=== PATIENT | female | born 1975 | race Caucasian/White ===

== ENCOUNTER → 2020-09-01 | Outpatient (CLI) | payer OTHER ==
[2020-09-01 09:13] VITALS: BP 143/82; PULSE 80; RESP 18; TEMP 98.3
--- NOTE | 2020-09-01 09:52 | P.GSHP ---
History of Present Illness H&P Date: 09/01/20 Chief Complaint: Lump right breast Maliha is a 45-year-old white female seen in consultation for Maira Eden regarding a mass in her right breast. She has in 2014 and a needle core biopsy of the left breast was done which revealed a fibroadenoma. Additionally a needle biopsy of the right breast which is believed to be in the area of the palpable abnormality was also consistent with a fibroadenoma. Although this appears to be relatively stable on radiographic evaluation since 2014, the patient. It is increased in size and it is tender to palpation. Her last bilateral mammogram was on 02/25/2020 lesions of concern were identified in the left breast. She subsequently has had a repeat [place] [id number]. Again a 12 mm upper-outer right anterior density is noted associated with the biopsy clip it appears to be stable and is most likely consistent with a fibroadenoma however it is clinically tender for the patient. She is not complaining of any lesions of concern in the left breast. The pain in the right breast started about 2 months ago. She does not complain of any pain masses or nodules in the left breast. She has not had any trauma or infection of the breast. The epicenter of the pain appears to be at the 11 o'clock position near the area of increased nodularity which is believed to be that which was biopsied consistent with a fibroadenoma. Patient is a cervical cancer survivor. smoke: 1 PPD Caffeine: Negative theobromine: weekly Family History: mother: cervical, and stomach cancer patient: cervical cancer 2 maternal aunts: cervical cancer maternal aunt: brain cancer Hormonal History: menarche: 11 , breast fed: yes, age at first : 17 menopause: now, she had a hysterectomy about 29 she still has her ovaries BCP: 2 years hormones: estrogen after hysterectomy stopped less than one year Surgical history: 1. Hysterectomy at age of about 29, cervical cancer 2. D&C 3. gallbladder 4. two 5. 2 1/2 ribs removed left side, at the age of 29; ? cancer Medical History: CVA stress induced Hormonal History: smoke: 1/PPD alcohol: none drugs: none - Constitutional Constitutional: Reports sweats, Denies chills, Denies fever - EENT Eyes: denies blurred vision, denies pain Ears: deny: decreased hearing, tinnitus Ears, nose, mouth and throat: Denies headache, Denies sore throat - Breasts Breasts: bilateral: as per HPI - Cardiovascular Cardiovascular: Denies chest pain, Denies shortness of breath - Respiratory Comment: ribs removed, arthritis - Gastrointestinal Gastrointestinal: Denies abdominal pain, Denies diarrhea, Denies nausea, Denies vomiting - Genitourinary (Female) Comment: UTI on an antibiotic at this time Genitourinary: Denies dysuria, Denies hematuria - Menstruation Menstruation: Reports post hysterectomy - Musculoskeletal Comment: arthritis - Integumentary Integumentary: Denies pruritus, Denies rash - Neurological Comment: no feeling in the left side Neurological: Denies numbness, Denies weakness - Psychiatric Psychiatric: Reports anxiety, Denies depression - Endocrine Endocrine: Reports weight change, Denies fatigue - Hematologic/Lymphatic Comment: none - Allergic/Immunologic Allergic/Immunologic: Reports as per HPI Past Medical History History of Any Multi-Drug Resistant Organisms: None Reported Smoking Status: Current every day smoker Medications and Allergies Home Medications Medication Instructions Recorded Confirmed Type Ascorbic Acid [Vitamin C] 500 mg PO DAILY 09/01/20 09/01/20 History Cephalexin [Keflex] 500 mg PO Q12HR 09/01/20 09/01/20 History Cholecalciferol (Vitamin D3) 125 mcg PO WEEKLY 09/01/20 09/01/20 History [Vitamin D3 (5000 units)] Cyclobenzaprine [Flexeril] 10 mg PO HS 09/01/20 09/01/20 History Mv,Calcium,Min/Iron/Folic/Vitk 1 each PO DAILY 09/01/20 09/01/20 History [One-A-Day Women's Complete Tab] Naproxen 500 mg PO BID 09/01/20 09/01/20 History Allergies Allergy/AdvReac Type Severity Reaction Status Date / Time bee venom protein (honey bee) Allergy Anaphylaxis Unverified 09/01/20 09:07 codeine Allergy Rash/Hives Unverified 09/01/20 09:07 iodine Allergy Swelling Unverified 09/01/20 09:07 orange Allergy Anaphylaxis Unverified 09/01/20 09:07 Penicillins Allergy Rash/Hives Unverified 09/01/20 09:07 Sulfa (Sulfonamide Allergy Rash/Hives Unverified 09/01/20 09:07 Antibiotics) Surgical - Exam Vital Signs Temp Pulse Resp BP Pulse Ox 98.3 F 80 18 143/82 99 09/01/20 09:10 09/01/20 09:10 09/01/20 09:10 09/01/20 09:10 09/01/20 09:10 BMI 32.3 - General well developed, well nourished, no distress - Eyes normal ocular movement - ENT no hearing loss - Neck no masses, trachea midline - Respiratory normal respiratory effort, clear to auscultation - Cardiovascular Rhythm: regular Heart Sounds: normal: S1, S2 - Abdomen Abdomen: soft, non tender, no guarding, no rigid, no rebound - Integumentary normal turgor This is decreased sensation extending from the left side down toward the left thigh and lower leg, she has no loss of motor activity on this side - Neurologic no disoriented, no combative - Musculoskeletal normal gait - Psychiatric oriented to time, oriented to person, oriented to place, speech is normal, memory intact breast exam: BRA: 38C inspection: grade 3 ptosis bilateral palpation: Right breast: Multi-positional exam fibrocystic changes, area of increased nodularity approximately the 11 o'clock position which is tender to palpation Right axilla: No adenopathy of concern Left breast: Multi-positional exam fibrocystic changes no dominant masses or nodules of concern Left axilla: No adenopathy of concern Results mammogram and ultrasound of the right breast reviewed from 07-28-20, bilateral mammogram on 02-25-20 Assessment and Plan Assessment: Impression: 1. ? recent stress induced CVA 2. pain right breast 3. nodule right breast 4. prior fibroadenoma right breast Plan: 1. FNA right breast palpable mass 2. Consider removal of palpable mass depending on pathology 3. Clearance from Sharmaine Eden 4. rule out a CVA CC: Sharmaine Eden encounter 45 minutes, > 50% of time in planning and counselling
--- NOTE | 2020-09-01 09:54 | P.PCN ---
Date of Procedure: 09/01/20 Preoperative Diagnosis: Mass right breast approximately 1 cm in size at 11 o'clock position Postoperative Diagnosis: Same Procedure(s) Performed: FNA area of concern Surgeon: Sophia Chavarria Pathology: other Condition: stable Disposition: same day Indications for Procedure: palpable mass right breast Operative Findings: Dense breast tissue Description of Procedure: Concern in the right breast was prepped using alcohol. A 22-gauge needle on a 12 mL syringe was inserted into the area of concern under negative pressure. Multiple passes were obtained obtaining tissue for evaluation. Tissue was then removed and sent to pathology. Patient tolerated procedure in stable condition dressing was applied. Patient will follow-up in the near future for results.
== END | disposition home or self-care (01) ==
LOC: WWCWWP 08:57
PROVIDERS: ATTEND Surgery
DX: N64.9 Disorder of breast, unspecified (principal)
CPT/HCPCS: 88173

== ENCOUNTER 2021-05-10 21:06 | Observation (INO) | payer OTHER ==
--- NOTE | 2021-05-10 21:43 | ED ---
Neuro HPI - General Chief Complaint: Neuro Symptoms/Deficit Stated Complaint: Leg Numbness Time Seen by Provider: 05/10/21 21:20 Source: patient, EMS, RN notes reviewed, old records reviewed Mode of arrival: EMS Limitations: no limitations - History of Present Illness Is the patient presenting with stroke symptoms?: No Initial Comments: This is a 45-year-old female no real significant medical history is safe for evaluation regards to neurological deficits leg pain left leg numbness and tingling. Patient has no other complaints here in the ER she is accepted in transfer evaluated although during transfer process symptoms Location: left leg Place: home Severity: mild Quality: weak, numb, tingling Improves With: time Worsens With: none On Anticoagulants: No Context: gradual onset Associated Symptoms: denies other symptoms Treatments Prior to Arrival: none - Related Data Home Medications: Home Medications Medication Instructions Recorded Confirmed Ascorbic Acid [Vitamin C] 500 mg PO DAILY 09/01/20 05/10/21 Cyclobenzaprine [Flexeril] 10 mg PO TID PRN 09/01/20 05/10/21 Naproxen 500 mg PO BID 09/01/20 05/10/21 Aspirin EC [Ecotrin Low Dose] 81 mg PO DAILY 05/10/21 05/10/21 EPINEPHrine (Auto Inject) [Epipen] 0.3 mg IM ONCE PRN 05/10/21 05/10/21 Ergocalciferol [Vitamin D2 (1250 1,250 mcg PO WE 05/10/21 05/10/21 Mcg = 60890 Iu)] Nicotine 21Mg/24Hr Patch [Habitrol] 1 patch TRANSDERM DAILY 05/10/21 05/10/21 Potassium Chloride ER [K-Dur 10] 10 meq PO DAILY 05/10/21 05/10/21 Pregabalin [Lyrica] 100 mg PO TID 05/10/21 05/10/21 Spironolactone [Aldactone] 25 mg PO DAILY 05/10/21 05/10/21 Topiramate [Topamax] 150 mg PO BID 05/10/21 05/10/21 hydroCHLOROthiazide [Hydrodiuril] 25 mg PO DAILY 05/10/21 05/10/21 lisinopriL [Zestril] 2.5 mg PO BID 05/10/21 05/10/21 Previous Rx's Medication Instructions Recorded Aspirin 81 mg PO DAILY 21 Days tab 05/11/21 Atorvastatin [Lipitor] 40 mg PO HS #30 tab 05/11/21 Clopidogrel [Plavix] 75 mg PO DAILY #30 tab 05/11/21 Allergies/Adverse Reactions: Allergies Allergy/AdvReac Type Severity Reaction Status Date / Time bee venom protein (honey bee) Allergy Anaphylaxis Verified 05/10/21 22:31 codeine Allergy Rash/Hives Verified 05/10/21 22:31 iodine Allergy Swelling Verified 05/10/21 22:31 orange Allergy Anaphylaxis Verified 05/10/21 22:31 Penicillins Allergy Rash/Hives Verified 05/10/21 22:31 Sulfa (Sulfonamide Allergy Rash/Hives Verified 05/10/21 22:31 Antibiotics) Review of Systems ROS Statement: Those systems with pertinent positive or pertinent negative responses have been documented in the HPI. ROS Other: All systems not noted in ROS Statement are negative. General Exam Limitations: no limitations Stroke MDM - NIH Stroke Scale 1a. Level of Consciousness: (0) alert 1b. LOC Questions: (0) answers correctly 1c. LOC Commands: (0) performs tasks correctly 2. Best Gaze: (0) normal 3. Visual: (0) no visual loss 4. Facial Palsy: (0) normal symmetrical movement 5a. Motor Arm Left: (0) no drift 5b. Motor Arm Right: (0) no drift 6a. Motor Leg Left: (0) no drift 6b. Motor Leg Right: (0) no drift 7. Limb Ataxia: (0) absent 8. Sensory: (0) normal 9. Best Language: (0) no aphasia 10. Dysarthria: (0) normal 11. Extinction/Inattention: (0) no abnormality - Medical Decision Making 45 female to the emergency department for evaluation of neurological complaints and leg numbness. All symptoms resolved here in the ER. Patient sent to us for neurological evaluation Past Medical History Past Medical History: CVA/TIA Additional Past Medical History / Comment(s): cervical/stomach CA History of Any Multi-Drug Resistant Organisms: None Reported Past Surgical History: Hysterectomy Past Psychological History: No Psychological Hx Reported Smoking Status: Current every day smoker Past Alcohol Use History: None Reported Past Drug Use History: Marijuana Course Vital Signs 05/10/21 05/11/21 05/11/21 21:09 01:01 02:53 Temperature 98 F Pulse Rate 78 Respiratory 18 18 18 Rate Blood Pressure 107/78 O2 Sat by Pulse 98 Oximetry 05/11/21 05/11/21 03:55 04:11 Temperature 98.3 F Pulse Rate 88 Respiratory 18 Rate Blood Pressure 96/61 115/59 O2 Sat by Pulse 94 L Oximetry - Reevaluation(s) Reevaluation #1: Medical record is reviewed Patient symptoms are improved here in the emergency department Patient informed of results and questions answered Patient is in no acute distress Transferring paperwork is reviewed and did speak with transferring physician Reevaluation #2: Patient aware of need for admission and monitoring Disposition Clinical Impression: Transient cerebral ischemia Disposition: ADMITTED IP TO THIS HOSP Condition: Fair Is patient prescribed a controlled substance at d/c from ED?: No
[2021-05-10] MEDS ORDERED: SODIUM CHLORIDE 0.9% 1,000 ML IV SCH (21:45)
--- NOTE | 2021-05-10 22:37 | US ---
EXAMINATION TYPE: US carotid duplex BILAT DATE OF EXAM: 05/10/2021 COMPARISON: NONE CLINICAL HISTORY: Stenosis. EXAM MEASUREMENTS: RIGHT: Peak Systolic Velocity (PSV) cm/sec ----- Right CCA: 79.8 ----- Right ICA: 71.1 ----- Right ECA: 120.6 ICA/CCA ratio: 0.9 RIGHT: End Diastole cm/sec ----- Right CCA: 24.6 ----- Right ICA: 30.4 ----- Right ECA: 26.0 LEFT: Peak Systolic Velocity (PSV) cm/sec ----- Left CCA: 58.0 ----- Left ICA: 69.3 ----- Left ECA: 124.2 ICA/CCA ratio: 1.2 LEFT: End Diastole cm/sec ----- Left CCA: 25.7 ----- Left ICA: 32.1 ----- Left ECA: 12.8 VERTEBRALS (direction of flow): Right Vertebral: Antegrade Left Vertebral: Antegrade Rhythm: Normal No significant velocity elevations. Mild intimal thickening bilaterally. IMPRESSION: There is antegrade flow in the vertebral arteries. The images and measurements suggest less than 25% stenosis in both internal carotid arteries. NASCET criteria was used in interpretation of this exam? Criteria for Assigning % of Stenosis / Diameter reduction (Estimation based on the indirect measurements of the internal carotid artery velocities (ICA PSV). 1. Normal (no stenosis)=ICA PSV < 125 cm/s: ratio < 2.0: ICA EDV<40 cm/s. 2. Less than 50% stenosis=ICA PSV < 125 cm/s: ratio < 2.0: ICA EDV<40 cm/s. 3. 50 to 69% stenosis=ICA PSV of 125 to 230 cm/s: ration 2.0 ? 4.0: ICA EDV 40-100 cm/s. 4. Greater than 70% stenosis to near occlusion= ICA PSV > 230 cm/s: ratio > 4.0: ICA EDV > 100 cm/s. 5. Near occlusion= ICA PSV velocities may be low or undetectable: variable ratio and ICA EDV. 6. Total occlusion=unable to detect flow.
[2021-05-11] MEDS ORDERED: ASPIRIN 325 MG TAB PO SCH (09:00)
[2021-05-11] MEDS ORDERED: TOPIRAMATE 25 MG TAB PO SCH (09:15)
[2021-05-11] MEDS ORDERED: CLOPIDOGREL 75 MG TAB PO SCH (09:15)
[2021-05-11] MEDS ORDERED: TOPIRAMATE 100 MG TAB PO SCH (09:15)
--- NOTE | 2021-05-11 09:43 | P.CNNES ---
History of Present Illness Consult date: 05/11/21 Requesting physician: Mingo Rogers Reason for Consult: tia History of Present Illness: This is 45-year-old woman history of stroke with residual left-sided weakness, migraine, seizure, hypertension, fibromyalgia, chronic pain syndrome, cervix neoplasma s/p partial hysterectomy and has history of nicotine use who was transferred from outside facility ([facility]) to our emergency department on 05/10/2021 for escalation of stroke work-up. She stated that on the 05/10/2021 around the 12 PM in the afternoon she was watching TV and all of a sudden she noticed that she was having bilateral lower extremity weakness with numbness as well as slurred speech. She said that the she also noticed that she has significant pain throughout her body. She denies of the difficulty swallowing. She said that she has a headache every day and it over the frontal occipital region and it's over the the left side predominantly. She said the headache fluctuates on off and it's been about the same. Upon asking her the description of the headache she said it all the above as an sharp pain, throbbing, tension. She denies of any photophobia,. Phonophobia or nausea or vomiting. She denies any loss of consciousness yesterday or urinary or bowel incontinence or tongue bite. He said the she is on aspirin 81, Lipitor 10 mg daily and she is compliant with her medication that. She stated that the L4 her seizure as well as migraine she is on Topamax and she's supposed to be on 150 mg 1 tablet twice a day that was just changed recently but she has not got a chance to get the prescription since it was changed recently and she is only on 100 mg 1 tablet twice a day. She follows up with her neurologist (Dr. Gomez). She said that she has an EEG, not by this Friday. She had EEGs in the past and she stated that she was told she did have a seizure on the EEG. Currently she is feeling back to baseline. As a result the she seek medical help and the patient the presented to [facility]. Some of the patient home medication consist of aspirin 81 mg, Lipitor 10 mg, Flexeril 10 mg 1 tablet 3 times a day when necessary, Lyrica 100 mg a tablet 3 times a day, Aldactone 25 mg daily, Topamax 150 mg a tablet at twice a day, hydrochlorothiazide, Lipitor pill, vitamin C vitamin D2. Outside facility work-up/management: CT of the head there and was reported as no acute intracranial finding. And there are note and they stated that the patient had NIH of a 6 but no TPA since the they felt the patient was probably a TIA or stroke per their note. She had CT lumbr spine and reported as no acute traumatic lesion of lumbar spine. Multilevel degenerative disc disease changes. In body of report it is seen in L3-L4, L4-L5 and L5-S1. Her wbc on presentation at [facility] is 9.7 (normal). Glucose 116, Na 136, Ca 10.5, Cr 0.7, AST/ALT 25/21. Some of the workup in the hospital consisted of: Initial vitals: blood pressure is 107/78, heart rates 78, respiratory of 18, temperature of 98 Fahrenheit oral and pulse ox 90% Carotid duplex is reported as there is antegrade flow in the vertebral arteries. Images and measurements suggest less than 25% stenosis in both internal carotid arteries. Review of Systems Review of system: The 12 point system was reviewed and apparent positive and negative per HPI. Past Medical History Past Medical History: CVA/TIA Additional Past Medical History / Comment(s): cervical/stomach CA History of Any Multi-Drug Resistant Organisms: None Reported Past Surgical History: Hysterectomy Past Psychological History: No Psychological Hx Reported Smoking Status: Current every day smoker Past Alcohol Use History: None Reported Past Drug Use History: Marijuana Additional Drug Use History / Comment(s): Marijuana use every night Medications and Allergies Home Medications Medication Instructions Recorded Confirmed Type Ascorbic Acid [Vitamin C] 500 mg PO DAILY 09/01/20 05/10/21 History Cyclobenzaprine [Flexeril] 10 mg PO TID PRN 09/01/20 05/10/21 History Naproxen 500 mg PO BID 09/01/20 05/10/21 History Aspirin EC [Ecotrin Low Dose] 81 mg PO DAILY 05/10/21 05/10/21 History Atorvastatin Calcium [Lipitor] 10 mg PO DAILY 05/10/21 05/10/21 History EPINEPHrine (Auto Inject) [Epipen] 0.3 mg IM ONCE PRN 05/10/21 05/10/21 History Ergocalciferol [Vitamin D2 (1250 1,250 mcg PO WE 05/10/21 05/10/21 History Mcg = 16912 Iu)] Nicotine 21Mg/24Hr Patch [Habitrol] 1 patch TRANSDERM DAILY 05/10/21 05/10/21 History Potassium Chloride ER [K-Dur 10] 10 meq PO DAILY 05/10/21 05/10/21 History Pregabalin [Lyrica] 100 mg PO TID 05/10/21 05/10/21 History Spironolactone [Aldactone] 25 mg PO DAILY 05/10/21 05/10/21 History Topiramate [Topamax] 150 mg PO BID 05/10/21 05/10/21 History hydroCHLOROthiazide [Hydrodiuril] 25 mg PO DAILY 05/10/21 05/10/21 History lisinopriL [Zestril] 2.5 mg PO BID 05/10/21 05/10/21 History Allergies Allergy/AdvReac Type Severity Reaction Status Date / Time bee venom protein (honey bee) Allergy Anaphylaxis Verified 05/10/21 22:31 codeine Allergy Rash/Hives Verified 05/10/21 22:31 iodine Allergy Swelling Verified 05/10/21 22:31 orange Allergy Anaphylaxis Verified 05/10/21 22:31 Penicillins Allergy Rash/Hives Verified 05/10/21 22:31 Sulfa (Sulfonamide Allergy Rash/Hives Verified 05/10/21 22:31 Antibiotics) Physical Examination - Vital Signs Vital Signs: Vital Signs Temp Pulse Pulse Resp BP BP Pulse Ox 05/11/21 04:45 98 F 85 18 93/61 97 05/11/21 04:11 115/59 05/11/21 03:55 98.3 F 88 18 96/61 94 L 05/11/21 02:53 18 05/11/21 01:01 18 05/10/21 21:09 98 F 78 18 107/78 98 Intake and Output 05/10/21 05/11/21 05/11/21 22:59 06:59 14:59 Other: Voiding Method Toilet # Voids 1 Weight 81.193 kg 80.6 kg GENERAL: The patient is lying in bed and is not in acute distress. CHEST: The heart rate is regular rate rhythm. No murmurs to auscultation. No carotid bruit bilaterally. LUNG: Clear to auscultation bilaterally no wheezing noted throughout. Not labored breathing. ABDOMEN/GI: Bowel sounds present in all 4 quadrants. No tenderness to palpation throughout. NEUROLOGICAL: Higher mental function: The patient is awake, alert, oriented to self, place and time. Patient is following commands. No aphasia and no neglect. Cranial nerves: The pupils are round, equal and reactive to light and accommodation. Visual connell are full to confrontation throughout. Extraocular movement is intact no nystagmus is noted. Facial sensation is normal to touch throughout. The facial strength is normal throughout. Hearing is normal bilaterally to hand rub. Tongue is midline and moved [id number] without any difficulty. No dysarthria is noted. Shoulder shrug is normal bilaterally. Motor: Gait is deferred. The strength is 3 (per patient is chronic but seems effort related). Otherwise 5 over 5 throughout right side. Normal tone and bulk. Cerebellum: Normal finger to nose over bilaterally. Sensation: Sensation is normal to touch throughout. Reflexes (right/left): 2+ throughout. Plantars are downgoing bilaterally. Results Blackwell virus PCR was not detected Assessment and Plan Assessment: Transient bilateral lower extremity weakness with numbness and slurred speech: Possibly TIA. Patient states she has chronic left sided weakness but on examination is seems effort related. Reported old stroke with residual left-sided weakness (on examination seems effort related) Migraine and currently not complaining of any headaches History of Seizure Chronic pain syndrome Fibromyalgia Hypertension cervix neoplasma s/p partial hysterectomy Plan: * The patient started on aspirin 325mg daily. I decreased aspirin to 81 mg her home dose and started the patient on Plavix 75 mg daily. The patient to be on dual antiplatelets and then after 21 days to stop aspirin and continue Plavix indefinitely. * She was started on Lipitor 80 mg daily at bedtime. I'll decrease the Lipitor 80 mg daily at bedtime to 40mg for secondary stroke prophylaxis. * 2-D echo, lipid panel is ordered by the ED is pending. * I will get a repeat CT of the head. Patient does not want to pursue with MRI of the brain or lumbar spine as an inpatient and would like this to be addressed as an outpatient and she'll follow-up with her neurologist to get that done. * Ordered TSH * I started the patient on her migraine/seizure medication of Topamax 150 mg 1 tablet twice a day (she said her dose was increase to this recently but has not had change to pick-up script and was taking 100mg 1 tab bid). * Continue Neuro checks * Consulted physical therapy and occupation therapy * Patient was consulted on tobacco cessation. * We'll defer the rest of the medical management to the primary team. * Regarding DVT prophylaxis patient can be on SCDs or Lovenox or subq heparin but will defer to the primary team. * Upon discharge the patient needs to follow-up with her neurologist within 1-2 weeks. She has a common appointment for an EEG this friday as outpatient. * Otherwise no other workup is needed from a neurological standpoint. If the basic workup is negative then she is clear from a neurological standpoint especially that she would like to be discharged and get the rest of the workup as an outpatient. The plan discussed with the patient's nurse. Thank you for the consultation. Rene Gordillo M.D. Neuro-hospitalist Time with Patient: Greater than 30
[2021-05-11] MEDS ORDERED: CYCLOBENZAPRINE 10 MG TAB PO PRN (10:14)
[2021-05-11] MEDS ORDERED: ASCORBIC ACID 500 MG TAB PO SCH (10:15)
[2021-05-11] MEDS ORDERED: hydroCHLOROthiazide 25 MG TAB PO SCH (10:15)
[2021-05-11] MEDS ORDERED: SPIRONOLACTONE 25 MG TAB PO SCH (10:15)
[2021-05-11] MEDS ORDERED: NICOTINE 21MG/24HR PATCH TRANSDERM SCH (10:15)
[2021-05-11] MEDS ORDERED: NAPROXEN 250 MG TAB PO SCH (10:15)
--- NOTE | 2021-05-11 10:56 | CT ---
EXAMINATION TYPE: CT brain wo con DATE OF EXAM: 05/11/2021 COMPARISON: None INDICATION: Slurred speech and weakness. Rule out stroke. DLP: 1099.4 mGycm, Automated exposure control for dose reduction was used. CONTRAST: None CT of the brain is performed utilizing 3 mm thick sections through the posterior fossa and 3 mm thick sections through the remaining calvarium. Study is performed within 24 hours of arrival to the hosp [facility]. No abnormal hyperdensity is present to suggest an acute intracranial hemorrhage. No mass lesion is evident. No acute infarcts are evident. Ventricles and sulci are appropriate for the patient age. Paranasal sinuses and mastoid air cells within the [id number] are clear. IMPRESSIONS: 1. Normal CT Brain. If symptoms persist, MRI could be performed for greater sensitivity.
--- NOTE | 2021-05-11 11:19 | ECHOF ---
Referral Reason:Thrombus MEASUREMENTS -------- HEIGHT: 162.6 cm WEIGHT: 80.3 kg BP: RVIDd: 2.5 cm (< 3.3) IVSd: 1.2 cm (0.6 - 1.1) LVIDd: 3.1 cm (3.9 - 5.3) LVPWd: 1.4 cm (0.6 - 1.1) IVSs: 1.4 cm LVIDs: 2.6 cm LVPWs: 1.3 cm LA Diam: 3.3 cm (2.7 - 3.8) Ao Diam: 3.1 cm (2.0 - 3.7) AV Cusp: 1.6 cm (1.5 - 2.6) LA Diam: 3.1 cm (2.7 - 3.8) MV EXCURSION: 14.230 mm (> 18.000) MV EF SLOPE: 32 mm/s (70 - 150) EPSS: 0.6 cm MV E Samson: 0.63 m/s MV DecT: 240 ms MV A Samson: 0.59 m/s MV E/A Ratio: 1.06 RAP: 5.00 mmHg RVSP: 15.95 mmHg FINDINGS -------- Sinus rhythm. This was a technically adequate study. LV size, wall thickness and systolic function are normal, with an EF greater than 55%. The left juliet tricular size is normal. The right ventricle is normal in size. The left atrial size is normal. The right atrial size is normal. The aortic valve is trileaflet, and appears structurally normal. No aortic stenosis or regurgitation. Mild mitral regurgitation is present. Mild tricuspid regurgitation present. Right ventricular systolic pressure is normal at < 35 mmHg. There is no pulmonic regurgitation present. There is no pericardial effusion. CONCLUSIONS -------- 1. LV size, wall thickness and systolic function are normal, with an EF greater than 55%. 2. The left ventricular size is normal. 3. The right ventricle is normal in size. 4. The left atrial size is normal. 5. The right atrial size is normal. 6. The aortic valve is trileaflet, and appears structurally normal. No aortic stenosis or regurgitati on. 7. Mild mitral regurgitation is present. 8. Mild tricuspid regurgitation present. CLINICAL CARE COORDINATOR: Danette Gomes RDCS
[2021-05-11] MEDS: PREGABALIN 100 MG CAP PO SCH ×2 (11:28→16:09)
[2021-05-11 15:47] VITALS: BP 139/60; PULSE 80; RESP 16; TEMP 98.3
[2021-05-11] MEDS ORDERED: ATORVASTATIN 80 MG TAB PO SCH (21:00)
[2021-05-11] MEDS ORDERED: ATORVASTATIN 40 MG TAB PO SCH (21:00)
[2021-05-11 21:28] LABS: Chol/HDL Ratio 3.92
[2021-05-12] MEDS ORDERED: ASPIRIN 81 MG PO SCH (09:00)
[2021-05-12] MEDS ORDERED: POTASSIUM CHLORIDE ER 10 MEQ TAB.ER.PRT PO SCH (09:00)
[2021-05-16] MEDS ORDERED: ERGOCALCIFEROL 1,250 MCG (50,000 IU) CAPSULE PO SCH (09:00)
--- NOTE | 2021-05-26 09:06 | P.HPIM ---
History of Present Illness H&P Date: 05/11/21 Chief Complaint: Left-sided weakness 45-year-old woman history of stroke with residual left-sided weakness, migraine, seizure, hypertension, fibromyalgia, chronic pain syndrome, cervix neoplasma s/p partial hysterectomy and has history of nicotine use who was transferred from outside facility ([place]) to our emergency department on 05/10/2021 for escalation of stroke work-up. She stated that on the 05/10/2021 around the 12 PM in the afternoon she was watching TV and all of a sudden she noticed that she was having bilateral lower extremity weakness with numbness as well as slurred speech. She said that the she also noticed that she has significant pain throughout her body. She denies of the difficulty swallowing. She said that she has a headache every day and it over the frontal occipital region and it's over the the left side predominantly. She said the headache fluctuates on off and it's been about the same. Outside facility work-up/management: CT of the head there and was reported as no acute intracranial finding. And there are note and they stated that the patient had NIH of a 6 but no TPA since the they felt the patient was probably a TIA or stroke per their note. She had CT lumbr spine and reported as no acute traumatic lesion of lumbar spine. Multilevel degenerative disc disease changes. In body of report it is seen in L3-L4, L4-L5 and L5-S1. Her wbc on presentation at [facility] is 9.7 (normal). Glucose 116, Na 136, Ca 10.5, Cr 0.7, AST/ALT 25/21. Review of Systems REVIEW OF SYSTEMS: CONSTITUTIONAL: No fever, no malaise, no fatigue. HEENT: No recent visual problems or hearing problems. Denied any sore throat. CARDIOVASCULAR: No chest pain, orthopnea, PND, no palpitations, no syncope. PULMONARY: No shortness of breath, no cough, no hemoptysis. GASTROINTESTINAL: No diarrhea, no nausea, no vomiting, no abdominal pain. NEUROLOGICAL: No headaches, no weakness, no numbness. HEMATOLOGICAL: Denies any bleeding or petechiae. GENITOURINARY: Denies any burning micturition, frequency, or urgency. MUSCULOSKELETAL/RHEUMATOLOGICAL: Denies any joint pain, swelling, or any muscle pain. ENDOCRINE: Denies any polyuria or polydipsia. The rest of the 14-point review of systems is negative. Past Medical History Past Medical History: CVA/TIA Additional Past Medical History / Comment(s): cervical/stomach CA History of Any Multi-Drug Resistant Organisms: None Reported Past Surgical History: Hysterectomy Past Psychological History: No Psychological Hx Reported Smoking Status: Current every day smoker Past Alcohol Use History: None Reported Past Drug Use History: Marijuana Additional Drug Use History / Comment(s): Marijuana use every night Medications and Allergies Home Medications Medication Instructions Recorded Confirmed Type Ascorbic Acid [Vitamin C] 500 mg PO DAILY 09/01/20 05/10/21 History Cyclobenzaprine [Flexeril] 10 mg PO TID PRN 09/01/20 05/10/21 History Naproxen 500 mg PO BID 09/01/20 05/10/21 History Aspirin EC [Ecotrin Low Dose] 81 mg PO DAILY 05/10/21 05/10/21 History EPINEPHrine (Auto Inject) [Epipen] 0.3 mg IM ONCE PRN 05/10/21 05/10/21 History Ergocalciferol [Vitamin D2 (1250 1,250 mcg PO WE 05/10/21 05/10/21 History Mcg = 59421 Iu)] Nicotine 21Mg/24Hr Patch [Habitrol] 1 patch TRANSDERM DAILY 05/10/21 05/10/21 History Potassium Chloride ER [K-Dur 10] 10 meq PO DAILY 05/10/21 05/10/21 History Pregabalin [Lyrica] 100 mg PO TID 05/10/21 05/10/21 History Spironolactone [Aldactone] 25 mg PO DAILY 05/10/21 05/10/21 History Topiramate [Topamax] 150 mg PO BID 05/10/21 05/10/21 History hydroCHLOROthiazide [Hydrodiuril] 25 mg PO DAILY 05/10/21 05/10/21 History lisinopriL [Zestril] 2.5 mg PO BID 05/10/21 05/10/21 History Aspirin 81 mg PO DAILY 21 Days tab 05/11/21 Rx Atorvastatin [Lipitor] 40 mg PO HS #30 tab 05/11/21 Rx Clopidogrel [Plavix] 75 mg PO DAILY #30 tab 05/11/21 Rx Allergies Allergy/AdvReac Type Severity Reaction Status Date / Time bee venom protein (honey bee) Allergy Anaphylaxis Verified 05/10/21 22:31 codeine Allergy Rash/Hives Verified 05/10/21 22:31 iodine Allergy Swelling Verified 05/10/21 22:31 orange Allergy Anaphylaxis Verified 05/10/21 22:31 Penicillins Allergy Rash/Hives Verified 05/10/21 22:31 Sulfa (Sulfonamide Allergy Rash/Hives Verified 05/10/21 22:31 Antibiotics) Physical Exam Vitals: Vital Signs Temp Pulse Pulse Resp BP BP Pulse Ox 05/11/21 04:45 98 F 85 18 93/61 97 05/11/21 04:11 115/59 05/11/21 03:55 98.3 F 88 18 96/61 94 L 05/11/21 02:53 18 05/11/21 01:01 18 05/10/21 21:09 98 F 78 18 107/78 98 Intake and Output 05/10/21 05/11/21 05/11/21 22:59 06:59 14:59 Intake Total 360 Balance 360 Intake: Oral 360 Other: Voiding Method Toilet # Voids 1 1 Weight 81.193 kg 80.6 kg - Constitutional General appearance: Present: average body habitus, cooperative, no acute distress - EENT Eyes: Present: anicteric sclerae, EOMI, PERRLA, normal appearance ENT: Present: hearing grossly normal, normal oropharynx Ears: bilateral: normal - Neck Neck: Present: normal ROM. Absent: lymphadenopathy, rigidity, thyromegaly Carotids: negative: bruit present Thyroid: bilateral: normal size, negative: enlarged, nodule - Respiratory Respiratory: bilateral: CTA, negative: rales, rhonchi, wheezing - Cardiovascular Rhythm: regular Heart sounds: normal: S1, S2 Abnormal Heart Sounds: Absent: systolic murmur, diastolic murmur - Gastrointestinal General gastrointestinal: Present: normal bowel sounds, soft. Absent: distended, organomegaly, tenderness - Genitourinary Genitourinary Comment(s): deferred - Integumentary Integumentary: Present: normal turgor. Absent: jaundiced, rash, ulcer - Neurologic Neurologic: Present: CNII-XII intact. Absent: focal deficits - Musculoskeletal Musculoskeletal: Present: gait normal, strength equal bilaterally - Psychiatric Psychiatric: Present: A&O x's 3, appropriate affect, intact judgment & insight Thrombosis Risk Factor Assmnt - Choose All That Apply Any of the Below Risk Factors Present?: Yes Each Factor Represents 1 point: Age 41-60 years Thrombosis Risk Factor Assessment Total Risk Factor Score: 1 Thrombosis Risk Factor Assessment Level: Low Risk Assessment and Plan Assessment: 1. Possible TIA -- Transient bilateral lower extremity weakness with numbness and slurred speech - Patient states she has chronic left sided weakness but on examination is seems effort related. - Neurology on board, patient received aspirin 325 mg in ED it has been D escalated to 81 mg daily with addition of Plavix 75 mg daily by neurology; patient is recommended to continue with dual antiplatelet therapy for 21 days after which recommended to to discontinue aspirin and continue Plavix indefinitely; patient is started on Lipitor 80 mg daily at bedtime; no recommending to continue with Lipitor 40 mg daily for secondary stroke prophylaxis - 2-D echo, lipid panel, TSH and Hb A1 C's order - Consult PT/OT/HAND ICER 2. Migraine; currently not complaining of any headaches; Topamax 150 mg twice a day 3. History of Seizure; Topamax increased from 100 mg twice a day up to 150 mg twice a day per neurology recommendations 4. Hypertension; lisinopril 2.5 mg daily, hydrochlorothiazide 25 mg daily; Aldactone 25 mg daily 5. Fibromyalgia; continue with Lyrica 100 mg 3 times a day 6. Chronic pain syndrome; Flexeril 10 mg 3 times a day DVT prophylaxis; SCDs/subcu Lovenox CODE STATUS full code
--- NOTE | 2021-05-26 09:08 | P.DS ---
Providers Date of admission: 05/10/21 21:41 Expected date of discharge: 05/11/21 Attending physician: Robert Wilkins Consults: 05/10/21 21:42 Consult Physician Routine Consulting Provider: Rene Gordillo Consult Reason/Comments: tia Do you want consulting provider notified?: Yes Primary care physician: Jas Dm [facility] Course: 45-year-old woman history of stroke with residual left-sided weakness, migraine, seizure, hypertension, fibromyalgia, chronic pain syndrome, cervix neoplasma s/p partial hysterectomy and has history of nicotine use who was transferred from outside facility ([place]) to our emergency department on 05/10/2021 for escalation of stroke work-up. She stated that on the 05/10/2021 around the 12 PM in the afternoon she was watching TV and all of a sudden she noticed that she was having bilateral lower extremity weakness with numbness as well as slurred speech. She said that the she also noticed that she has significant pain throughout her body. She denies of the difficulty swallowing. She said that she has a headache every day and it over the frontal occipital region and it's over the the left side predominantly. She said the headache fluctuates on off and it's been about the same. Outside facility work-up/management: CT of the head there and was reported as no acute intracranial finding. And there are note and they stated that the patient had NIH of a 6 but no TPA since the they felt the patient was probably a TIA or stroke per their note. She had CT lumbr spine and reported as no acute traumatic lesion of lumbar spine. Mul tilevel degenerative disc disease changes. In body of report it is seen in L3- L4, L4-L5 and L5-S1. Her wbc on presentation at [facility] is 9.7 (normal). Glucose 116, Na 136, Ca 10.5, Cr 0.7, AST/ALT 25/21. 1. Possible TIA -- Transient bilateral lower extremity weakness with numbness and slurred speech - Patient states she has chronic left sided weakness but on examination is seems effort related. - Neurology on board, patient received aspirin 325 mg in ED it has been D escalated to 81 mg daily with addition of Plavix 75 mg daily by neurology; patient is recommended to continue with dual antiplatelet therapy for 21 days after which recommended to to discontinue aspirin and continue Plavix indefinitely; patient is started on Lipitor 80 mg daily at bedtime; no recommending to continue with Lipitor 40 mg daily for secondary stroke prophylaxis - 2-D echo, lipid panel, TSH and Hb A1 C's order - Consult PT/OT/[employer] 2. Migraine; currently not complaining of any headaches; Topamax 150 mg twice a day 3. History of Seizure; Topamax increased from 100 mg twice a day up to 150 mg twice a day per neurology recommendations 4. Hypertension; lisinopril 2.5 mg daily, hydrochlorothiazide 25 mg daily; Aldactone 25 mg daily 5. Fibromyalgia; continue with Lyrica 100 mg 3 times a day 6. Chronic pain syndrome; Flexeril 10 mg 3 times a day No recommending MRI which patient wanted completed as outpatient; repeat CT of the head was done which was unremarkable Patient was discharged home in a stable condition to follow-up with neurology as outpatient Patient Condition at Discharge: Fair Plan - Discharge Summary Discharge Rx Participant: No New Discharge Prescriptions: New Clopidogrel [Plavix] 75 mg PO DAILY #30 tab Aspirin 81 mg PO DAILY 21 Days tab Atorvastatin [Lipitor] 40 mg PO HS #30 tab Continue Naproxen 500 mg PO BID Cyclobenzaprine [Flexeril] 10 mg PO TID PRN PRN Reason: Muscle Spasm Ascorbic Acid [Vitamin C] 500 mg PO DAILY Ergocalciferol [Vitamin D2 (1250 Mcg = 32603 Iu)] 1,250 mcg PO WE Pregabalin [Lyrica] 100 mg PO TID Nicotine 21Mg/24Hr Patch [Habitrol] 1 patch TRANSDERM DAILY lisinopriL [Zestril] 2.5 mg PO BID EPINEPHrine (Auto Inject) [Epipen] 0.3 mg IM ONCE PRN PRN Reason: Anaphylaxis Topiramate [Topamax] 150 mg PO BID Spironolactone [Aldactone] 25 mg PO DAILY Potassium Chloride ER [K-Dur 10] 10 meq PO DAILY hydroCHLOROthiazide [Hydrodiuril] 25 mg PO DAILY Aspirin EC [Ecotrin Low Dose] 81 mg PO DAILY Discontinued Atorvastatin Calcium [Lipitor] 10 mg PO DAILY Discharge Medication List Ascorbic Acid [Vitamin C] 500 mg PO DAILY 09/01/20 [History] Cyclobenzaprine [Flexeril] 10 mg PO TID PRN 09/01/20 [History] Naproxen 500 mg PO BID 09/01/20 [History] Aspirin EC [Ecotrin Low Dose] 81 mg PO DAILY 05/10/21 [History] EPINEPHrine (Auto Inject) [Epipen] 0.3 mg IM ONCE PRN 05/10/21 [History] Ergocalciferol [Vitamin D2 (1250 Mcg = 54125 Iu)] 1,250 mcg PO WE 05/10/21 [History] Nicotine 21Mg/24Hr Patch [Habitrol] 1 patch TRANSDERM DAILY 05/10/21 [History] Potassium Chloride ER [K-Dur 10] 10 meq PO DAILY 05/10/21 [History] Pregabalin [Lyrica] 100 mg PO TID 05/10/21 [History] Spironolactone [Aldactone] 25 mg PO DAILY 05/10/21 [History] Topiramate [Topamax] 150 mg PO BID 05/10/21 [History] hydroCHLOROthiazide [Hydrodiuril] 25 mg PO DAILY 05/10/21 [History] lisinopriL [Zestril] 2.5 mg PO BID 05/10/21 [History] Aspirin 81 mg PO DAILY 21 Days tab 05/11/21 [Rx] Atorvastatin [Lipitor] 40 mg PO HS #30 tab 05/11/21 [Rx] Clopidogrel [Plavix] 75 mg PO DAILY #30 tab 05/11/21 [Rx] Follow up Appointment(s)/Referral(s): Jas Chaidez MD [Primary Care Provider] - 05/15/21 2:45 pm (Appointment with Sharmaine MAYS) Patient Instructions/Handouts: Transient Ischemic Attack (DC) Discharge Disposition: HOME SELF-CARE
== END 2021-05-11 16:35 | disposition home or self-care (01) ==
LOC: EC 21:06 → 6NMEDSUR 21:41 → 3SCARD 22:26 → 6NMEDSUR 05-11 00:15 → 3SCARD 05-11 03:50
PROVIDERS: ADMIT Hospitalist; ATTEND Hospitalist
DX: R20.0 Anesthesia of skin (principal); R20.2 Paresthesia of skin; M79.605 Pain in left leg; R53.1 Weakness; R47.81 Slurred speech; F17.200 Nicotine dependence, unspecified, uncomplicated; I69.354 Hemiplegia and hemiparesis following cerebral infarction affecting left non-dominant side; R56.9 Unspecified convulsions; G43.909 Migraine, unspecified, not intractable, without status migrainosus; I10 Essential (primary) hypertension; M79.7 Fibromyalgia; M51.37 Other intervertebral disc degeneration, lumbosacral region; G89.4 Chronic pain syndrome; Z20.822 Contact with and (suspected) exposure to COVID-19; Z85.028 Personal history of other malignant neoplasm of stomach; Z85.41 Personal history of malignant neoplasm of cervix uteri; Z79.82 Long term (current) use of aspirin; Z79.1 Long term (current) use of non-steroidal anti-inflammatories (NSAID); Z79.02 Long term (current) use of antithrombotics/antiplatelets; Z79.899 Other long term (current) drug therapy; Z88.5 Allergy status to narcotic agent; Z88.0 Allergy status to penicillin; Z88.2 Allergy status to sulfonamides; Z91.018 Allergy to other foods; Z91.030 Bee allergy status; Z91.048 Other nonmedicinal substance allergy status; Z90.710 Acquired absence of both cervix and uterus; Z90.711 Acquired absence of uterus with remaining cervical stump
CPT/HCPCS: 96360; 96361; 99285; 93306; 97161; 97165; 92610; 92523; 80061; 84443; 87635; 93880; 70450; G0378 ×3; S4990

== ENCOUNTER → 2023-01-16 | Outpatient (CLI) | payer OTHER ==
[2023-01-16 14:29] VITALS: BP 154/83; PULSE 85; RESP 17; TEMP 98.9
--- NOTE | 2023-01-16 14:41 | P.PN ---
Subjective Progress Note Date: 01/16/23 Principal diagnosis: Breast pain Lump right breast Maliha is a 47-year-old white female initially seen in 2020 with a complaint of mastodynia. 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 A needle biopsy of the right breast was also consistent with a fibroadenoma. She underwent a bilateral mammogram on [id number] which was benign BIRADS 2. This revealed in the area of palpable concern in the right breast a stable biopsied 1.2 cm lobulated mass. A stable 1 cm partially visualized mass with a biopsy clip in the left breast at 9:00. This time the patient continues to complain of palpable change in the right breast with some nipple discharge. The discharge is yellow in nature. She has not noted any blood. She does not feel any lumps masses or nodules of concern with Definity in the left breast. smoke: 1 PPD Caffeine: Negative theobromine: weekly Family History: mother: cervical, and stomach cancer patient: cervical cancer 2 maternal aunts: cervical cancer maternal aunt: brain cancer Hormonal History: menarche: 11 , breast fed: yes, age at first : 17 menopause: now, she had a hysterectomy about 29 she still has her ovaries BCP: 2 years hormones: estrogen after hysterectomy stopped less than one year Surgical history: 1. Hysterectomy at age of about 29, cervical cancer 2. D&C 3. gallbladder 4. two 5. 2 1/2 ribs removed left side, at the age of 29; ? cancer Medical History: CVA stress induced Hormonal History: smoke: 1/PPD alcohol: none drugs: none - Constitutional Constitutional: Reports sweats, Denies chills, Denies fever - EENT Eyes: denies blurred vision, denies pain Ears: deny: decreased hearing, tinnitus Ears, nose, mouth and throat: Denies headache, Denies sore throat - Breasts Breasts: bilateral: as per HPI - Cardiovascular Cardiovascular: Denies chest pain, Denies shortness of breath - Respiratory Comment: ribs removed, arthritis - Gastrointestinal Gastrointestinal: Denies abdominal pain, Denies diarrhea, Denies nausea, Denies vomiting - Genitourinary (Female) Comment: UTI on an antibiotic at this time Genitourinary: Denies dysuria, Denies hematuria - Menstruation Menstruation: Reports post hysterectomy - Musculoskeletal Comment: arthritis - Integumentary Integumentary: Denies pruritus, Denies rash - Neurological Comment: no feeling in the left side Neurological: Denies numbness, Denies weakness - Psychiatric Psychiatric: Reports anxiety, Denies depression - Endocrine Endocrine: Reports weight change, Denies fatigue - Hematologic/Lymphatic Comment: none - Allergic/Immunologic Allergic/Immunologic: Reports as per HPI Past Medical History History of Any Multi-Drug Resistant Organisms: None Reported Smoking Status: Current every day smoker Medications and Allergies Home Medications Medication Instructions Recorded Confirmed Type Ascorbic Acid [Vitamin C] 500 mg PO DAILY 09/01/20 09/01/20 History Cephalexin [Keflex] 500 mg PO Q12HR 09/01/20 09/01/20 History Cholecalciferol (Vitamin D3) 125 mcg PO WEEKLY 09/01/20 09/01/20 History [Vitamin D3 (5000 units)] Cyclobenzaprine [Flexeril] 10 mg PO HS 09/01/20 09/01/20 History Mv,Calcium,Min/Iron/Folic/Vitk 1 each PO DAILY 09/01/20 09/01/20 History [One-A-Day Women's Complete Tab] Naproxen 500 mg PO BID 09/01/20 09/01/20 History Allergies Allergy/AdvReac Type Severity Reaction Status Date / Time bee venom protein (honey bee) Allergy Anaphylaxis Unverified 09/01/20 09:07 codeine Allergy Rash/Hives Unverified 09/01/20 09:07 iodine Allergy Swelling Unverified 09/01/20 09:07 orange Allergy Anaphylaxis Unverified 09/01/20 09:07 Penicillins Allergy Rash/Hives Unverified 09/01/20 09:07 Sulfa (Sulfonamide Allergy Rash/Hives Unverified 09/01/20 09:07 Antibiotics) Objective - Constitutional General appearance: Present: cooperative - EENT Eyes: Present: EOMI - Neck Neck: Present: normal ROM - Respiratory Respiratory: bilateral: CTA - Cardiovascular Rhythm: regular Heart sounds: normal: S1, S2 - Integumentary Integumentary: Present: normal turgor - Musculoskeletal Musculoskeletal: Present: gait normal - Psychiatric Psychiatric: Present: A&O x's 3, appropriate affect, intact judgment & insight - Additional findings Additional findings: breast exam: BRA: 38C inspection: grade 3 ptosis bilateral palpation: Right breast: Multi-positional exam fibrocystic changes, area of increased nodularity approximately the 11 o'clock position which is tender to palpationabout 1 cm in size, no nipple discharge today Right axilla: No adenopathy of concern Left breast: Multi-positional exam fibrocystic changes no dominant masses or nodules of concern, slight nodularity lateral aspect of the breast Left axilla: No adenopathy of concern Assessment and Plan Assessment: Impression: 1. recent stress induced CVA 2. pain right breast at site of fibroadenoma 3. nodule right breast 4. bilateral mammogram 06-10-22 BIRAD 2 Plan: 1. resection of palpable, tender mass right breast in the OR 2. Clearance from Kaycee Hernandez 3. ultrasound of the lateral left breast at palpable nodularity CC: Kaycee Hernandez
--- NOTE | 2023-01-16 17:01 | USB ---
Reason for Exam: Clinical finding. Patient History: Menarche at age 8. First Full-Term at age 17. Hysterectomy at age 27. Postmenopausal. Patient has history of breast feeding. 03/03/2015, Benign Core Biopsy on the right side. 03/03/2015, Benign Core Biopsy on the left side. Risk Values: Charlotte 5 year model risk: 1.4%. NCI Lifetime model risk: 11.1%. Technique: Method: Targeted. Patient Position: Supine. Prior Study Comparison: 03/03/2015 Bilateral Diagnostic Mammogram, [facility]. Findings: The axilla of the left breast was scanned. A complete US of all four quadrants of the breast , axilla, and retro-areolar region were reviewed. At the axilla, corresponding to the palpable site, couple overlie and mildly enlarged lymph nodes are noted. One measuring 3.1 x 1.2 x 0.7 cm. There is some eccentric nodular cortical thickening measuring up to 4 mm on one side. A second lymph node also shows cortical thickening. The node measures 2.9 x 1.6 x 0.8 cm. Nodular cortical thickening measuring up to 5.0 mm. *Given the nodular cortical thickening and the fact that these are clinically palpable, tissue sampling is recommended. * At the 3:00 position, 6 cm from the nipple, there is a too small to characterize 6 x 5 x 2 mm circumscribed hypoechoic oval lesion. * At the 9:00 position, 3 cm from the nipple, there is a previously biopsied 9 x 8 x 8 mm mass with adjacent microclip. * At the 11:00 position, 6 cm from the nipple, too small to characterize 5 x 5 x 3 mm circumscribed oval lesion with through transmission. * No other solid or cystic lesion. Overall Assessment: Suspicious, BI-RAD 4 Management: Ultrasound Core Biopsy of the left breast. Palpable axillary node demonstrating nodular cortical thickening. A reactive/post inflammatory etiology is suspected. More worrisome etiology should be excluded. Results were given to the patient verbally at the time of exam. Electronically signed and approved by: Camelia Blackwell M.D. Radiologist
--- NOTE | 2023-01-16 17:03 | MM ---
Reason for Exam: Clinical finding. Last screening mammogram was performed 7 month(s) ago. Indicated Problems: Lump or thickening of the left side (size 5) for 1 Month(s). Patient History: Menarche at age 8. First Full-Term at age 17. Hysterectomy at age 27. Postmenopausal. Patient has history of breast feeding. 03/03/2015, Benign Core Biopsy on the right side. 03/03/2015, Benign Core Biopsy on the left side. Risk Values: [place] 5 year model risk: 1.4%. NCI Lifetime model risk: 11.1%. Prior Study Comparison: 03/03/2015 Bilateral Diagnostic Mammogram, [facility]. Tissue Density: Left: The breast tissue is heterogeneously dense. This may lower the sensitivity of mammography. Findings: Analyzed By CAD. Low axillary tail lymph node. Chronic nodularity medially with an adjacent microclip related to prior biopsy. Some subtle underlying nodularity is suggested centrally posteriorly on the MLO view on the 3-D images. Palpable, enlarged and nodular appearing left axillary nodes felt by the surgeon. Further ultrasound evaluation recommended. Overall Assessment: Incomplete: need additional imaging evaluation, BI-RAD 0 Management: Diagnostic Breast Ultrasound of the left breast. Electronically signed and approved by: Camelia Blackwell M.D. Radiologist
== END ==
LOC: WWCWWP 14:13
PROVIDERS: ATTEND Surgery
DX: N60.11 Diffuse cystic mastopathy of right breast (principal); Z86.73 Personal history of transient ischemic attack (TIA), and cerebral infarction without residual deficits; Z88.0 Allergy status to penicillin; Z88.2 Allergy status to sulfonamides; Z91.030 Bee allergy status; N63.25 Unspecified lump in the left breast, overlapping quadrants; F17.200 Nicotine dependence, unspecified, uncomplicated; Z88.5 Allergy status to narcotic agent; Z91.02 Food additives allergy status; Z91.018 Allergy to other foods
CPT/HCPCS: 77065; 76641; G0279; 77061

== ENCOUNTER → 2023-02-03 | Day surgery (SDC) | payer OTHER ==
--- NOTE | 2023-02-10 07:56 | USB ---
Risk Values: [place] 5 year model risk: 1.4%. NCI Lifetime model risk: 11.1%. Prior Study Comparison: 07/28/2020 Right MG 3D diag mammo w/cad RT - 2, Unknown. 06/10/2022 Bilateral Screening Mammogram, [facility]. 01/16/2023 Left MG 3D diag mammo w/cad LT, [facility]. 01/16/2023 Left US breast LT, [facility]. Pathology Description: Location: axillary tail. Marker Left Behind. Cores: 2 Gauge: 12 The lymph node in question within the left axilla were targeted by the undersigned. Procedure was performed by the undersigned. Informed consent was obtained and all of the patients questions were answered. The standard sterile technique was utilized and appropriate local anesthesia was obtained with 1% lidocaine. Mammotome probe was advanced and 2core samples were obtained and sent to pathology for interpretation. Microclip marker was deployed at the site of biopsy. Given axillary biopsy post mammographic evaluation was not obtained. The patient tolerated the procedure well and left the department in stable condition. Pathology results are pending. Impression: Successful stereotactic core biopsy left axilla with pathology results pending. Pathology Results: Result: Benign, Lymph node. LEFT AXILLA LYMPH NODE, BIOPSY: Benign lymph node with reactive changes. Overall Assessment: Benign Management: Diagnostic Breast Ultrasound of the left breast in 6 months. Electronically signed and approved by: Malcolm Trevizo M.D. Radiologis
--- NOTE | 2023-02-11 11:40 | P.PN ---
Progress Note - Text Progress Note Date: 02/11/23 The patient is unable to come for a postprocedure appointment. I have called her with the results of her left axillary lymph node biopsy. She had a left axillary node core biopsy done on . This revealed benign lymph node. This was reviewed by the radiologist and it was felt that a diagnostic left breast ultrasound in 6 months should be performed. The patient states that she tolerated the procedure without difficulty. She states that she is doing well at this time. She will be seen in February. If she has any questions or concerns she will call us sooner. The core biopsy was done secondary to an ultrasound of the left axilla which was performed on . On this ultrasound she was noted to have several enlarged lymph nodes with cortical eccentric nodular thickening. It was felt that these were most likely reactive/postinflammatory but biopsy was recommended. Biopsy done on confirmed a benign etiology.
== END ==
LOC: RADUSWWP 12:47
PROVIDERS: ATTEND Surgery
DX: D24.2 Benign neoplasm of left breast (principal)
CPT/HCPCS: 88305; 19083; A4648

== ENCOUNTER → 2023-03-27 | Outpatient (CLI) | payer OTHER ==
[2023-03-27 11:30] VITALS: BP 130/76; PULSE 86; RESP 17; TEMP 98.7
--- NOTE | 2023-03-27 11:39 | P.PN ---
Subjective Progress Note Date: 03/27/23 Principal diagnosis: symptomatic right breast fibroadenoma Breast pain Lump right breast/fibroadenoma Maliha is a 47-year-old white female initially seen in 2020 with a complaint of mastodynia. 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 A needle biopsy of the right breast was also consistent with a fibroadenoma. She underwent a bilateral mammogram on [id number] which was benign BIRADS 2. This revealed in the area of palpable concern in the right breast a stable biopsied 1.2 cm lobulated mass. A stable 1 cm partially visualized mass with a biopsy clip in the left breast at 9:00. At this time the patient continues to complain of palpable change in the right breast with some nipple discharge. The discharge is yellow in nature. She has not noted any blood. She does not feel any lumps masses or nodules of concern definitively in the left breast. The patient was noted to have some fullness in the left axilla. This led to left breast localized ultrasound followed by a left breast mammogram and a full breast ultrasound after which ultrasound-guided core biopsy of a left axillary lymph node was recommended. She was noted to have a thickened cortex of approximately 5 mm with 3 being the upper limit of normal. A core biopsy of this was benign. smoke: 1 PPD Caffeine: Negative chocolate: weekly Family History: mother: cervical, and stomach cancer patient: cervical cancer 2 maternal aunts: cervical cancer maternal aunt: brain cancer Hormonal History: menarche: 11 , breast fed: yes, age at first : 17 menopause: now, she had a hysterectomy about 29 she still has her ovaries BCP: 2 years hormones: estrogen after hysterectomy stopped less than one year Surgical history: 1. Hysterectomy at age of about 29, cervical cancer 2. D&C 3. gallbladder 4. two 5. 2 1/2 ribs removed left side, at the age of 29; ? cancer Medical History: CVA stress induced Hormonal History: smoke: 1/PPD alcohol: none drugs: none - Constitutional Constitutional: Reports sweats, Denies chills, Denies fever - EENT Eyes: denies blurred vision, denies pain Ears: deny: decreased hearing, tinnitus Ears, nose, mouth and throat: Denies headache, Denies sore throat - Breasts Breasts: bilateral: as per HPI - Cardiovascular Cardiovascular: Denies chest pain, Denies shortness of breath - Respiratory Comment: ribs removed, arthritis - Gastrointestinal Gastrointestinal: Denies abdominal pain, Denies diarrhea, Denies nausea, Denies vomiting - Genitourinary (Female) Comment: UTI on an antibiotic at this time Genitourinary: Denies dysuria, Denies hematuria - Menstruation Menstruation: Reports post hysterectomy - Musculoskeletal Comment: arthritis - Integumentary Integumentary: Denies pruritus, Denies rash - Neurological Comment: no feeling in the left side Neurological: Denies numbness, Denies weakness - Psychiatric Psychiatric: Reports anxiety, Denies depression - Endocrine Endocrine: Reports weight change, Denies fatigue - Hematologic/Lymphatic Comment: none - Allergic/Immunologic Allergic/Immunologic: Reports as per HPI Past Medical History History of Any Multi-Drug Resistant Organisms: None Reported Smoking Status: Current every day smoker Medications and Allergies Home Medications Medication Instructions Recorded Confirmed Type Ascorbic Acid [Vitamin C] 500 mg PO DAILY 09/01/20 09/01/20 History Cephalexin [Keflex] 500 mg PO Q12HR 09/01/20 09/01/20 History Cholecalciferol (Vitamin D3) 125 mcg PO WEEKLY 09/01/20 09/01/20 History [Vitamin D3 (5000 units)] Cyclobenzaprine [Flexeril] 10 mg PO HS 09/01/20 09/01/20 History Mv,Calcium,Min/Iron/Folic/Vitk 1 each PO DAILY 09/01/20 09/01/20 History [One-A-Day Women's Complete Tab] Naproxen 500 mg PO BID 09/01/20 09/01/20 History Allergies Allergy/AdvReac Type Severity Reaction Status Date / Time bee venom protein (honey bee) Allergy Anaphylaxis Unverified 09/01/20 09:07 codeine Allergy Rash/Hives Unverified 09/01/20 09:07 iodine Allergy Swelling Unverified 09/01/20 09:07 orange Allergy Anaphylaxis Unverified 09/01/20 09:07 Penicillins Allergy Rash/Hives Unverified 09/01/20 09:07 Sulfa (Sulfonamide Allergy Rash/Hives Unverified 09/01/20 09:07 Antibiotics) Objective - Vital Signs Vital signs: Vital Signs Temp 98.7 F 03/27/23 11:25 Pulse 86 03/27/23 11:25 Resp 17 03/27/23 11:25 BP 130/76 03/27/23 11:25 Pulse Ox 97 03/27/23 11:25 FiO2 Intake & Output 03/26/23 03/27/23 03/27/23 18:59 06:59 18:59 Weight 80.739 kg - Constitutional General appearance: Present: cooperative - EENT Eyes: Present: EOMI ENT: Present: hearing grossly normal - Neck Neck: Present: normal ROM - Respiratory Respiratory: bilateral: CTA - Cardiovascular Rhythm: regular Heart sounds: normal: S1, S2 - Gastrointestinal General gastrointestinal: Present: soft - Integumentary Integumentary: Present: normal turgor - Musculoskeletal Musculoskeletal: Present: gait normal - Psychiatric Psychiatric: Present: A&O x's 3, appropriate affect, intact judgment & insight - Additional findings Additional findings: breast exam: BRA: 38C inspection: grade 3 ptosis bilateral palpation: Right breast: Multi-positional exam fibrocystic changes, area of increased nodularity approximately the 11 o'clock position which is tender to palpation about 1 cm in size, no nipple discharge today Right axilla: No adenopathy of concern Left breast: Multi-positional exam fibrocystic changes no dominant masses or nodules of concern, slight nodularity lateral aspect of the breast Left axilla: No adenopathy of concern Assessment and Plan Assessment: Impression: 1. recent stress induced CVA 2. pain right breast at site of fibroadenoma 3. nodule right breast 4. bilateral mammogram 06-10-22 BIRAD 2 Plan: 1. resection of palpable mass 11:00 OClock in OR, tender mass right breast in the OR 2. Clearance from Kaycee Hernandez 3. ultrasound of the lateral left breast at palpable nodularity done and biopsy CC: Kaycee Hernandez
== END ==
LOC: WWCWWP 11:15 → EEVIPCON 12:20
PROVIDERS: ATTEND Surgery
DX: D24.1 Benign neoplasm of right breast (principal); N63.0 Unspecified lump in unspecified breast; I63.89 Other cerebral infarction; Z88.0 Allergy status to penicillin; Z88.2 Allergy status to sulfonamides; Z91.018 Allergy to other foods; Z88.5 Allergy status to narcotic agent; Z91.030 Bee allergy status; Z91.041 Radiographic dye allergy status; Z87.891 Personal history of nicotine dependence

== ENCOUNTER 2023-04-01 11:17 | Day surgery (SDC) | payer OTHER ==
[~2023-04-01 11:17] MED LIST: DEXAMETHASONE SOD PHOSPHATE 4 MG/ML 1 ML VIAL IV ONE; HEPARIN SODIUM,PORCINE/PF 5,000 UNIT/0.5 ML SYRINGE SQ PRN; LACTATED RINGERS 1,000 ML IV SCH; ONDANSETRON 4 MG/2 ML VIAL IVP ONE; Pre Op ABX Message 1 EACH MISC MISCELLANE ONE
[2023-04-01 12:00] LABS: Glucose,Whole Blood 79 mg/dL (70-110)
[2023-04-01] MEDS ORDERED: ONDANSETRON 4 MG/2 ML VIAL ONE (12:00)
[2023-04-01] MEDS ORDERED: fentaNYL (PF) 50 MCG/ML 2 ML AMP IV PRN (12:09)
[2023-04-01] MEDS ORDERED: PROPOFOL 10 MG/ML 20 ML VIAL IV ONE (12:38)
[2023-04-01] MEDS ORDERED: MIDAZOLAM 2 MG/2 ML VIAL ONE (12:38)
[2023-04-01] MEDS ORDERED: LIDOCAINE 2% INJ 20 MG/ML (2 ML VIAL) ONE (12:38)
[2023-04-01] MEDS ORDERED: fentaNYL (PF) 50 MCG/ML 2 ML AMP ONE (12:38)
--- NOTE | 2023-04-01 13:19 | P.OP ---
Date of Procedure: 04/01/23 Preoperative Diagnosis: Symptomatic right breast fibroadenoma Postoperative Diagnosis: Same Procedure(s) Performed: Excision fibroadenoma right breast Anesthesia: CAROLINE Surgeon: Sophia Chavarria Estimated Blood Loss (ml): 3 IV fluids (ml): 400 Pathology: other (Mass right breast) Condition: stable Disposition: same day Indications for Procedure: Symptomatic right breast fibroadenoma Operative Findings: Dense breast tissue Description of Procedure: The patient was brought to the operating room and the right breast was prepped and draped in sterile fashion. An incision was made over the palpable abnormality. This was dissected down to the palpable abnormality in approximately 1 x 1.5 cm firm mass was removed. This was consistent with a biopsy-proven fibroadenoma. After assured that hemostasis was attained the wound was irrigated. Titanium clips were placed. The specimen was painted for orientation. The deep tissues were closed using 3-0 Vicryl suture. Subcutaneous tissue was closed using 3-0 Vicryl suture. The skin was closed using 4-0 Monocryl. The patient tolerated the procedure in stable condition. The specimen was sent to pathology.
[2023-04-01 13:48] VITALS: TEMP 97.2
[2023-04-01 14:08] VITALS: RESP 16
[2023-04-01] MEDS ORDERED: HYDROcodone/APAP 5-325MG 1 EACH TAB ONE (14:23)
[2023-04-01 14:46] VITALS: BP 133/79; PULSE 70
== END 2023-04-01 14:53 | disposition home or self-care (01) ==
LOC: OR 11:17 → EEVIPCON 13:40 → OR 14:53
PROVIDERS: ATTEND Surgery
DX: D24.1 Benign neoplasm of right breast (principal); N60.81 Other benign mammary dysplasias of right breast; F17.210 Nicotine dependence, cigarettes, uncomplicated; Z90.710 Acquired absence of both cervix and uterus; Z95.810 Presence of automatic (implantable) cardiac defibrillator; Z85.9 Personal history of malignant neoplasm, unspecified; Z91.030 Bee allergy status; Z88.5 Allergy status to narcotic agent; Z91.041 Radiographic dye allergy status; Z88.0 Allergy status to penicillin; Z77.098 Contact with and (suspected) exposure to other hazardous, chiefly nonmedicinal, chemicals; Z88.2 Allergy status to sulfonamides; Z79.899 Other long term (current) drug therapy; Z79.02 Long term (current) use of antithrombotics/antiplatelets; Z79.82 Long term (current) use of aspirin
CPT/HCPCS: 88305; 19125; J2250; J1100; J0690; J2405; J3010; J2704; J1644; J2001

== ENCOUNTER → 2023-04-04 | Outpatient (CLI) | payer OTHER ==
[2023-04-04 10:20] VITALS: BP 121/82; PULSE 80; RESP 16; TEMP 98.4
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
== END ==
LOC: WWCWWP 10:05
PROVIDERS: ATTEND Surgery
DX: D24.1 Benign neoplasm of right breast (principal); Z91.030 Bee allergy status; Z88.5 Allergy status to narcotic agent; Z91.041 Radiographic dye allergy status; Z91.018 Allergy to other foods; Z88.0 Allergy status to penicillin; Z88.2 Allergy status to sulfonamides